=== PATIENT | male | born 1955 | race Caucasian/White ===

== ENCOUNTER → 2016-03-28 | Outpatient (CLI) | payer BC ==
[~2016-03-28] MED LIST: METO25TA56 PO; SIMV20TA2 PO; ZNTT/150 PO
[2016-03-28 10:43] LABS: ALT/SGPT 83 U/L (12-78); BLOOD UREA NITROGEN 11 mg/dl (7-18); BUN/CREATININE RATIO 10.8 (10-20); CARBON DIOXIDE 25 mmol/L (21-32); CHLORIDE 105 mmol/L (98-107); CHOLESTEROL 134 mg/dl (0-200); GLUCOSE 105 mg/dl (70-99); POTASSIUM 4.1 mmol/L (3.5-5.1); SODIUM 139 mmol/L (136-145); TRIGLYCERIDES 153 mg/dl (0-150); VERY LOW DENSITY LIPOPROT CALC 31 mg/dl
[2016-03-28 10:46] LABS: AST/SGOT 43 U/L (15-37); CHOLESTEROL/HDL RATIO 2.7; HDL CHOLESTEROL 50 mg/dl; LDL CHOLESTEROL CALCULATED 53 mg/dl
== END | disposition home or self-care (01) ==
LOC: C.LAB1850 08:36
PROVIDERS: ATTEND Internal Medicine
DX: E78.5 Hyperlipidemia, unspecified (principal)

== ENCOUNTER → 2016-10-16 | Outpatient (CLI) | payer BC ==
[2016-10-16 09:40] LABS: ALT/SGPT 71 U/L (12-78); AST/SGOT 38 U/L (15-37); BLOOD UREA NITROGEN 14 mg/dl (7-18); BUN/CREATININE RATIO 13.5 (10-20); CALCIUM 9.3 mg/dl (8.5-10.1); CARBON DIOXIDE 28 mmol/L (21-32); CHLORIDE 106 mmol/L (98-107); CHOLESTEROL 140 mg/dl (0-200); GLUCOSE 121 mg/dl (70-99); POTASSIUM 4.2 mmol/L (3.5-5.1); SODIUM 139 mmol/L (136-145); TRIGLYCERIDES 132 mg/dl (0-150); VERY LOW DENSITY LIPOPROT CALC 26 mg/dl
[2016-10-16 09:43] LABS: CHOLESTEROL/HDL RATIO 3.4; HDL CHOLESTEROL 41 mg/dl; LDL CHOLESTEROL CALCULATED 73 mg/dl
== END | disposition home or self-care (01) ==
LOC: C.LAB1850 08:18
PROVIDERS: ATTEND Internal Medicine
DX: E78.5 Hyperlipidemia, unspecified (principal); K76.0 Fatty (change of) liver, not elsewhere classified; R73.9 Hyperglycemia, unspecified

== ENCOUNTER → 2016-12-17 | Outpatient (CLI) | payer BC ==
[2016-12-17 10:10] LABS: ESTIMATED AVERAGE GLUCOSE 108 mg/dl; HA1C FLAG Normal (Normal)
[2016-12-17 10:14] LABS: BLOOD UREA NITROGEN 13 mg/dl (7-18); BUN/CREATININE RATIO 14.5 (10-20); CALCIUM 8.9 mg/dl (8.5-10.1); CARBON DIOXIDE 28 mmol/L (21-32); CHLORIDE 105 mmol/L (98-107); CREATININE 0.87 mg/dl (0.60-1.40); GLUCOSE 101 mg/dl (70-99); POTASSIUM 3.7 mmol/L (3.5-5.1); SODIUM 139 mmol/L (136-145)
== END | disposition home or self-care (01) ==
LOC: C.LAB1850 08:02
PROVIDERS: ATTEND Internal Medicine
DX: R73.9 Hyperglycemia, unspecified (principal); Z12.5 Encounter for screening for malignant neoplasm of prostate

== ENCOUNTER → 2017-05-25 | Outpatient (CLI) | payer BC ==
[~2017-05-25] MED LIST changes: +RANI150T85 PO; -ZNTT/150 PO
[2017-05-25 10:09] LABS: HEMOGLOBIN A1C 5.3 % (4.5-5.6)
[2017-05-25 10:10] LABS: AST/SGOT 44 U/L (15-37); BLOOD UREA NITROGEN 10 mg/dl (7-18); CALCIUM 9.3 mg/dl (8.5-10.1); CARBON DIOXIDE 27 mmol/L (21-32); CHOLESTEROL 137 mg/dl (0-200); CREATININE 1.01 mg/dl (0.60-1.40); GLUCOSE 105 mg/dl (70-99); SODIUM 138 mmol/L (136-145)
[2017-05-25 10:14] LABS: ALT/SGPT 75 U/L (12-78); LDL CHOLESTEROL CALCULATED 65 mg/dl
== END | disposition home or self-care (01) ==
LOC: C.LAB1850 08:05
PROVIDERS: ATTEND Internal Medicine
DX: E78.5 Hyperlipidemia, unspecified (principal); R73.9 Hyperglycemia, unspecified; I10 Essential (primary) hypertension

== ENCOUNTER → 2017-05-29 | Outpatient (CLI) | payer BC ==
--- NOTE | 2017-05-29 09:29 | DIAGNOSTIC IMAGING REPORT ---
ABDOMINAL ULTRASOUND COMPLETE HISTORY: K76.0 Fatty liver disease, nonalcoholic [id number]. COMPARISON: Abdomen and pelvis CT 04/29/2012. Abdominal ultrasound 07/07/2011. FINDINGS: Pancreas: The pancreatic head and tail are obscured by overlying bowel gas. The remaining portions of the pancreas are within normal limits. Liver: The liver is echogenic consistent with fatty change. The liver measures 18 cm in length. 8 mm cyst within the left hepatic lobe. Gallbladder: The gallbladder is surgically absent. CBD: 6 mm. Kidneys: The right kidney measures 11.9 cm. The left kidney the measures 12.4 cm. No hydronephrosis. Bilateral renal cysts with the largest in the lower pole of the right kidney measuring 3 cm. Spleen: Normal in size measuring 11 cm in length. Aorta: Normal in caliber. IVC: Patent. IMPRESSION: 1. Hepatic steatosis. 2. Hepatic and renal cysts. 3. Prior cholecystectomy. Electronically signed by: Leo Nielsen M.D. 05/29/2017 9:27 AM Dictated Date/Time: 05/29/2017 9:24 AM
== END | disposition home or self-care (01) ==
LOC: C.ULTRBC 08:45
PROVIDERS: ATTEND Internal Medicine
DX: K76.0 Fatty (change of) liver, not elsewhere classified (principal); K76.89 Other specified diseases of liver; N28.1 Cyst of kidney, acquired